=== PATIENT | female | born 1985 | race Caucasian/White ===

== ENCOUNTER 2017-01-25 08:02 | Emergency (ER) | payer OTHER ==
[2017-01-25 08:13] VITALS: BP 110/76
[2017-01-25] MEDS ORDERED: CYCL10TA2 PO (08:39)
[2017-01-25] MEDS ORDERED: HYDR-971 PO (08:39)
--- NOTE | 2017-01-25 08:42 | PHYS DOC ---
General Chief Complaint: BACK INJURY Stated Complaint: BACK PAIN Time Seen by MD: 08:30 Source: patient Exam Limitations: no limitations Problems: History of Present Illness Initial Comments Pt is 31/F to ED c/o back pain. Pt states that on 01/13 she was sitting on girlfriend's lap, fell off backwards landing flat on her back. At that time she had some generalized back discomfort which resolved over the course of a few days. 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 States that she felt a twinge/tightness/pain in low back last night. Pain/stiffness worse this am, states she took tramadol at 2200 last night which helped. No leg weakness, no bowel/bladder sx, no saddle anesthesia. No prior back injury, no numbness/ tingling/weakness/radiating sx. Timing/Duration: 24 hours, getting worse Severity: moderate Modifying Factors: worse with movement, improves with rest Associated Symptoms: other Allergies: Coded Allergies: No Known Drug Allergies (Unverified , 01/25/17) Past Medical History Medical History: no pertinent history Surgical History: noncontributory (breast augmentation) Psychosocial History: anxiety Social History Smoker: non-smoker Alcohol: none Drugs: none Review of Systems Constitutional: denies chills, denies fever Respiratory: denies cough, denies shortness of breath Cardiovascular: denies palpitations, denies syncope Gastrointestinal: denies nausea, denies vomiting Genitourinary: denies frequency, denies hematuria Musculoskeletal: see HPI Psychiatric/Neurological: see HPI Physical Exam General Appearance: WD/WN, mild distress Ear, Nose, Throat: hearing grossly normal, normal ENT inspection Neck: non-tender, supple Respiratory: normal breath sounds, no respiratory distress Cardiovascular: normal peripheral pulses, regular rate, rhythm Gastrointestinal: non tender, soft Back: no CVA tenderness, no vertebral tenderness Extremities: non-tender, normal inspection Neurologic/Psychiatric: 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 OTC ibuprofen for baseline pain. Rx: norco 5mg #15, flexeril Follow up with your doctor in 5-7 days if not better. Return to ED with new or changing symptoms. PIETRO SCHWARTZ DO Jan 25, 2017 08:42
[2017-01-25] MEDS ORDERED: ORPHENADRINE CITRATE 60 MG/2 ML VIAL. IM ONE (09:00)
== END 2017-01-25 09:06 | disposition home or self-care (01) ==
LOC: ER 08:02
DX: S29.012A Strain of muscle and tendon of back wall of thorax, initial encounter (principal); X58.XXXA Exposure to other specified factors, initial encounter; Y93.89 Activity, other specified; Y99.8 Other external cause status; Y92.89 Other specified places as the place of occurrence of the external cause
CPT/HCPCS: 96372; 99283; J2360